=== PATIENT | female | born 1965 | race Caucasian/White ===

== ENCOUNTER 2018-07-19 08:03 | Day surgery (SDC) | payer OTHER ==
[2018-07-16 11:48] VITALS: Ht 152.4 cm; Wt 62.7 kg
[2018-07-19] VITALS (14 sets, daily range): BP systolic 90–158; BP diastolic 52–89; PULSE 72–98; RESP 13–22
[~2018-07-19] VITALS: Ht 152.4 cm; Wt 62.7 kg
[~2018-07-19 08:03] MED LIST: CEFAZOLIN 1 GM/50 ML (PMX) 50 ML IVPB SCH; SOD CHLORIDE 0.9% 1,000 ML IV ONE
--- NOTE | 2018-07-19 11:04 | PREAC ---
Date/Time of Note Date/Time of Note DATE: 07/19/18 TIME: 11:03 Anesthesia Eval and Record Evaluation Time Pre-Procedure Interview DATE: 07/19/18 TIME: 11:03 Age 52 Sex female NPO: 8 hrs Preoperative diagnosis left arm mass Planned procedure excision of left arm mass Past Medical History Past Medical History: Includes Cardio: HTN Surgery & Anesthesia Issues No known issue Meds Anticoagulation: No Beta Jenelle within 24 hr: No Reason Beta Jenelle not given: Pt. not on B-Jenelle Current Medications Cefazolin Sodium 50 ml @ 100 mls/hr PRE-OP IVPB ; Start 07/19/18 at 06:00; Stop 07/19/18 at 15:00 Sodium Chloride 1,000 ml @ 75 mls/hr [id number] ONCE IV ; Start 07/19/18 at 06:00; Stop 07/19/18 at 19:19 Meds reviewed: Yes Allergies Coded Allergies: No Known Allergy (Unverified , 07/16/18) Allergies Reviewed: Yes Labs/Studies Labs Reviewed: Reviewed by anesthesiologist test: N/A Pre-procedure Exam Last vitals Vital Signs Date Temp Pulse Resp B/P (MAP) Pulse Ox O2 O2 Flow FiO2 Time Delivery Rate 07/19/18 97.0 72 16 141/83 97 08:15 (102) Airway: Adequate mouth opening, Adequate thyromental dist Mallampati: Mallampati II Teeth: Abnormal (2 missing teeth upper left ) Lung: Normal Heart: Normal ASA Physical Status ASA physical status: 1 Emergency: None Planned Anesthetic General/MAC: Mask (vs. ), LMA Planned Pain Management Parenteral pain med, Local by surgeon Pre-operative Attestations Prior to commencing anesthesia and surgery, the patient was re-evaluated, there was verification of: *The patient's identity *The results of appropriate recent lab work and preoperative vital signs *The above evaluation not changing prior to induction *Anesthetic plan, risk benefits, alternative and complications discussed with patient/family; questions answered; patient/family understands, accepts and wishes to proceed. [employer] Check[employer] used CARYL BUSH MD Jul 19, 2018 11:04
[2018-07-19] MEDS ORDERED: BUPIVACAINE 0.5%/EPI (SDV) 30 ML INJ ONE ×2 (11:06→11:09)
--- NOTE | 2018-07-19 11:14 | HPN ---
Date/Time of Note Date/Time of Note DATE: 07/19/18 TIME: 11:14 Interval H&P Admission Note Pt. seen H&P reviewed: No system changes SAMIRA THORNE MD Jul 19, 2018 11:14
[2018-07-19] MEDS ORDERED: PROPOFOL 20 ML ONE (11:28)
[2018-07-19] MEDS ORDERED: MIDAZOLAM 1 MG/ML 2 ML INJ ONE (11:28)
[2018-07-19] MEDS ORDERED: LIDOCAINE 2% (SDV) 5 ML INJ ONE (11:28)
[2018-07-19] MEDS ORDERED: HYDROmorphONE 1 MG/5 ML IV SYRINGE IV PRN ×3 (11:30)
[2018-07-19] MEDS ORDERED: FENTAnyl 50 MCG/ML VIAL IV PRN ×3 (11:30)
[2018-07-19] MEDS ORDERED: MEPERIDINE 25 MG INJ IV PRN (11:30)
[2018-07-19] MEDS ORDERED: OXYCODONE/ACETAMINOPHEN (5/325) TAB PO PRN (11:30)
[2018-07-19] MEDS ORDERED: DIPHENHYDRAMINE 50 MG INJ IV PRN (11:30)
[2018-07-19] MEDS ORDERED: ONDANSETRON 4 MG INJ IV PRN ×2 (11:30→12:30)
[2018-07-19] MEDS ORDERED: PROCHLORPERAZINE 10 MG INJ IV PRN (11:30)
[2018-07-19] MEDS ORDERED: DEXAMETHASONE 4 MG/ML 5 ML INJ ONE (11:37)
[2018-07-19] MEDS ORDERED: FENTAnyl 50 MCG/ML VIAL ONE (11:37)
[2018-07-19] MEDS ORDERED: CEFAZOLIN 1 GM INJ ONE (11:37)
[2018-07-19] MEDS ORDERED: ONDANSETRON 4 MG INJ ONE (11:37)
[2018-07-19] MEDS ORDERED: EPHEDrine SULFATE 50 MG/5 ML SYG ONE (12:24)
--- NOTE | 2018-07-19 12:27 | OPR ---
Date/Time of Note Date/Time of Note DATE: 07/19/18 TIME: 12:22 Operative Report Procedure Date: Jul 19, 2018 Preoperative Diagnosis Left arm mass Postoperative Diagnosis Left arm mass Operation/Procedure Performed Excision left arm mass, subcutaneous, 11 cm Surgeon see signature line Tax Evaluator None Anesthesia Type: general Anesthesiologist: CARYL BUSH MD Estimated Blood Loss: minimal Transfusion none Specimen Left arm mass Grafts/Implants none Complications none Pt Condition Post Procedure: stable Disposition: PACU Indications Patient is a 52-year-old female who presented to the office complaining of a mass located in the posterior aspect of the left upper arm. She states this has been present for at least the past 2 years. She reported growth and increasing pain and discomfort. The patient had a CT scan which showed a large fatty attenuating lesion at the posterior lateral aspect of the upper arm which was compressing but not invading the triceps muscle. The patient was scheduled for elective excision for symptom relief and definitive pathological diagnosis. All risks and benefits of the procedure including, but not limited to: Wound infection, excessive bleeding, postoperative seroma/hematoma formation, neurovascular injury, mass recurrence, etc. were all explained to the patient in full detail. The patient fully understood and wished to proceed with the proced ure. Informed consent was obtained. Procedure Description The patient was brought to the operating room and placed supine on the operating table. Bilateral sequential compression devices were placed on both lower extremities. A dose of broad-spectrum perioperative intravenous antibiotics was given. The mass was preoperatively marked and confirmed with the patient in the holding area. After adequate general anesthesia was obtained, the patient's left arm was prepped and draped in standard surgical fashion. After performance of the surgical timeout, 0.5% Marcaine with epinephrine was injected over the area of the incision. A longitudinal incision was then made over the mass in the area of the triceps muscle using a 15 blade scalpel. The incision was carried down through the skin and subcutaneous tissues using combination of sharp dissection and Bovie electrocautery. In the subcutaneous tissues a large, lipomatous neoplasm was identified. It was dissected free of surrounding tissue s. Posteriorly it was adhered to the fascia of the triceps muscle. It was tediously dissected off. Once completely free it was delivered through the incision, transected at its base and passed off the field as specimen. Measured approximately 11 cm in maximal dimension. Hemostasis was then inspected for and noted to be adequate. The wound cavity was then irrigated with warm saline and the irrigant returned clear. Further local anesthesia was applied around the skin of the incision site. Incision was then closed in layers using interrupted 3-0 Vicryl sutures for the deep dermis. The skin was reapproximated using a running subcuticular 4-0 Monocryl suture. Incision was cleaned and Dermabond was applied as well as a compression wrap. The patient was awoken from anesthesia and transferred to the recovery room in stable condition. All counts were correct at the end of the case x2. SAMIRA THORNE MD Jul 19, 2018 12:27
[2018-07-19] MEDS ORDERED: IBUPROFEN 600 MG TAB PO PRN (12:30)
[2018-07-19] MEDS ORDERED: KETOROLAC 30 MG INJ IV PRN (12:30)
[2018-07-19] MEDS ORDERED: HYDROCODONE/APAP (5/325) TAB PO PRN (12:30)
--- NOTE | 2018-07-19 12:46 | PAC ---
Date/Time of Note Date/Time of Note DATE: 07/19/18 TIME: 12:45 Post-Anesthesia Notes Post-Anesthesia Note Last documented vital signs Vital Signs Date Temp Pulse Resp B/P (MAP) Pulse Ox O2 O2 Flow FiO2 Time Delivery Rate 07/19/18 96.8 72 16 90/52 (65) 96 10:03 Activity: WNL Respiratory function: WNL Cardiovascular function: WNL Mental status: Baseline Pain reasonably controlled: Yes Hydration appropriate: Yes Nausea/Vomiting absent: Yes Comments BP: 125/58 HR: 90 RR: 15 T: 98.7 SaO2: 97% CARYL BUSH MD Jul 19, 2018 12:46
== END 2018-07-19 14:10 | disposition home or self-care (01) ==
LOC: SDS 08:03
PROVIDERS: ATTEND Surgery
DX: D17.22 Benign lipomatous neoplasm of skin and subcutaneous tissue of left arm (principal); I10 Essential (primary) hypertension
CPT/HCPCS: 24073; 88307; J0690; J1100; J1885; J2175; J2250; J2405; J3010; Z7512; Z7610